=== PATIENT | male | born 1955 | race Caucasian/White ===

== ENCOUNTER 2025-08-21 11:17 | Day surgery (SDC) | payer OTHER ==
[~2025-08-21] VITALS: Ht 185.4 cm; Wt 79.5 kg
[~2025-08-21 11:17] MED LIST: Balanced Salt Epinephrine Irrigation Solution 500 mL IR SCH; Moxifloxacin HCL 0.5 MG/0.1 ML 0.4MLSYR RIGHTEYE SCH; Ondansetron 4 MG SoluTab MM PRN; PHENYLEPHRINE\\TROPICAMIDE\\TETRACAINE OPHTHALMIC DILATING SOLN RIGHTEYE PRN; Povidone-Iodine 450 DROP/30 ML Solution ONE; Povidone-Iodine 450 DROP/30 ML Solution RIGHTEYE SCH; Tetracaine HCl/Pf 0.5% Opth Soln 4 ml ONE
[2025-08-21] MEDS ORDERED: ESCI10 PO (11:44)
[2025-08-21] MEDS ORDERED: TESTOSTERONE60 GM TD (11:45)
[2025-08-21] MEDS ORDERED: TRAZ100 (11:46)
--- NOTE | 2025-08-21 12:11 | NUR ---
08/21/25 1210 Nava Hansen VITALS AT 1207 BP: 141/74 P:59 O2: 99% WITH 10 LITERS OF BLOW BY OXYGEN
[2025-08-21 12:23] VITALS: BP 125/74
== END 2025-08-21 12:42 | disposition home or self-care (01) ==
LOC: ORSCSDS 11:17
PROVIDERS: Student in an Organized Health Care Education/Training Program
PROC: 08RK3JZ Replacement of Left Lens with Synthetic Substitute, Percutaneous Approach (ICD-10-PCS; principal; 2025-08-21 12:30)
DX: H25.813 Combined forms of age-related cataract, bilateral (principal); H40.1123 Primary open-angle glaucoma, left eye, severe stage
CPT/HCPCS: A9270; V2632

== ENCOUNTER 2025-08-28 11:16 | Day surgery (SDC) | payer OTHER ==
[~2025-08-28] VITALS: Ht 185.4 cm; Wt 150.0 kg
[~2025-08-28 11:16] MED LIST changes: +ESCI10 PO; +TESTOSTERONE60 GM TD; +TRAZ100
--- NOTE | 2025-08-28 11:47 | NUR ---
08/28/25 1147 Talon Kilgore 10MG VALIUM GIVEN PER ORDERS AT 1135. PT REPORTED ANXIETY 10/27. O2 SATUATIONS MONITORED IN PRE-OP. CALL LIGHT WITHIN REACH.
[2025-08-28] MEDS ORDERED: Tetracaine HCl 0.5% Opth Soln 15 ml RIGHTEYE ONE (12:00)
--- NOTE | 2025-08-28 12:07 | NUR ---
08/28/25 1207 Allie Sánchez N 120/72 62 18 99% 10L BLOW BY O2
[2025-08-28 12:20] VITALS: BP 110/67
== END 2025-08-28 12:34 | disposition home or self-care (01) ==
LOC: ORSCSDS 11:16
PROVIDERS: Student in an Organized Health Care Education/Training Program
PROC: 08RJ3JZ Replacement of Right Lens with Synthetic Substitute, Percutaneous Approach (ICD-10-PCS; principal; 2025-08-28 12:30)
DX: H25.811 Combined forms of age-related cataract, right eye (principal); Z96.1 Presence of intraocular lens; H40.1111 Primary open-angle glaucoma, right eye, mild stage; H40.1123 Primary open-angle glaucoma, left eye, severe stage
CPT/HCPCS: A9270; V2632